=== PATIENT | female | born 1965 | race Two or more races ===

== ENCOUNTER 2016-02-22 15:23 | Emergency (ER) | payer OTHER ==
[2016-02-22 18:18] LABS: SPECIFIC GRAVITY 1.025 (1.001-1.030); URINE BILIRUBIN NEGATIVE (NEGATIVE); URINE BLOOD NEGATIVE (NEGATIVE); URINE GLUCOSE (UA) NEGATIVE (NEGATIVE); URINE LEUKOCYTE ESTERASE NEGATIVE (NEGATIVE); URINE NITRITE NEGATIVE (NEGATIVE); URINE PROTEIN NEGATIVE (NEGATIVE); URINE UROBILINOGEN NORMAL (0-1 mg/dl)
[2016-02-22 18:20] LABS: URINE APPEARANCE CLEAR; URINE COLOR YELLOW
--- NOTE | 2016-02-22 18:46 | US ---
Name: LEONEL MONTEIRO Exam: Venous ultrasound left leg Comparison: None Clinical history: Left leg pain and swelling Findings:Deep veins of the left leg were evaluated with ultrasound using real-time, color flow doppler and doppler analysis. Deep veins are compressible. There is no echogenic intraluminal filling defect. Blood flow responds appropriately to respiratory variation and augmentation on color doppler and spectral analysis. There is no suspicious fluid collection or mass. Impression: No ultrasound evidence for DVT left leg Note: The above report was uploaded to [facility]'s electronic medical records system at 1842 hours.
== END 2016-02-22 19:09 | disposition home or self-care (01) ==
LOC: ED 15:23
DX: M79.605 Pain in left leg (principal); R10.30 Lower abdominal pain, unspecified

== ENCOUNTER 2016-06-08 13:21 | Emergency (ER) | payer OTHER ==
--- NOTE | 2016-06-08 15:27 | US ---
VENOUS ULTRASOUND OF EXTREMITY Indications: Left lower extremity swelling. Question of DVT. Comparison: 02/22/2016 and 10/27/2014 FINDINGS: Multiple grayscale, color-flow and duplex Doppler images during left lower extremity DVT ultrasound are obtained from the common femoral vein down through to the peroneal and posterior tibial veins. DEEP VENOUS THROMBOSIS: Positive. COMMON FEMORAL VEIN: Occlusive thrombus is noted.. PROXIMAL FEMORAL VEIN: Normal. MID TO DISTAL FEMORAL VEIN: Normal. POPLITEAL VEIN: Partial occlusive thrombus.. PROXIMAL CALF VEINS: Normal. IMPRESSION: Deep vein thrombosis is identified within the left common femoral vein and popliteal vein as above. Findings were called to Dr. Olmedo at approximately 1522 hours on 06/08/2016.
[2016-06-08] MEDS ORDERED: ENOXAPARIN SODIUM 100 MG/ML SYRINGE SUB-Q ONE (15:39)
[2016-06-08] MEDS ORDERED: RIVAROXABAN 10 MG TABLET PO ONE (15:45)
== END 2016-06-08 16:21 | disposition home or self-care (01) ==
LOC: ED 13:21
DX: I82.4Z2 Acute embolism and thrombosis of unspecified deep veins of left distal lower extremity (principal); E78.5 Hyperlipidemia, unspecified; E78.00 Pure hypercholesterolemia, unspecified
CPT/HCPCS: 99283 ×2; 96372; 93971; J1650